=== PATIENT | male | born 1975 | race Caucasian/White ===

== ENCOUNTER 2020-04-26 08:03 | Emergency (ER) | payer OTHER, SELFPAY ==
[2020-04-26 08:24] VITALS: BP 126/91; PULSE 64; RESP 18; TEMP 36.4; O2SAT 99
--- NOTE | 2020-04-26 08:37 | ED.GENADULT ---
HPI - General Adult General Chief complaint: Ear Stated complaint: Ear Infection Time Seen by Provider: 04/26/20 08:27 Source: patient Mode of arrival: ambulatory Limitations: no limitations History of Present Illness HPI narrative: 45 y/o male. Pertinent PMH includes: None reported. Presents to [facility] today with acute complaints of LT side otalgia, 'yellow' discharge, as well as 'aching' type pressure for past 72 hours. Client denies auditory changes or loss. No fever, chills. No WELSH, cough, chest congestion, sore throat, dyspnea. No known ill contacts. No relief with home OTC remedies. He is without additional acute complaints upon exam. Related Data Home Medications Medication Instructions Recorded Confirmed No Home Medications 04/26/20 04/26/20 Allergies Allergy/AdvReac Type Severity Reaction Status Date / Time No Known Allergies Allergy Verified 04/26/20 08:29 Review of Systems Review of Systems: Narrative: CONSTITUTIONAL: Denies fever, chills, sweats. EYES: Denies visual changes, redness, discharge. ENT: Denies rhinorrhea, congestion, sore throat. Positive otalgia. CARDIOVASCULAR: Denies chest pain, palpitations, edema. RESPIRATORY: Denies dyspnea, wheezing, cough GASTROINTESTINAL: Denies abdominal pain, nausea, vomiting, diarrhea. GENITOURINARY: Denies dysuria, hematuria, abnormal discharge SKIN: Denies rash or itching. MUSCULOSKELETAL: Denies acute back pain, joint pain, or myalgia. NEUROLOGIC: Denies numbness, or focal weakness. PSYCHIATRIC: Denies anxiety or depression. All systems reviewed & are unremarkable except as noted in HPI and below (HPI. ) PMFSH Comments At time of signature, I agree with nursing past medical, surgical, social and family history. There is no relevant family history pertinent to the presenting complaint. Exam Narrative: Exam Narrative: GENERAL: This is a well-nourished, well-developed patient, in no apparent distress. HEAD: normocephalic, atraumatic. EYES: PERRL. Sclera clear/white. Vision is grossly intact. EARS: External ears normal. LT auditory canal with yellow/serosanguineous discharge. No canal obstruction or gross swelling. TM appears erythematous and bulging. No TM perforation. Positive tragus manipulation LT. RT ear normal, unaffected. Hearing grossly intact. NOSE: External nose normal. Positive rhinorrhea. THROAT: Mucous membranes moist, posterior pharynx clear. NECK: Neck supple, non-tender without lymphadenopathy, masses or thyromegaly. CARDIOVASCULAR: Regular rate and rhythm without murmurs, gallops, or rubs. RESPIRATORY: Clear to auscultation. Breath sounds equal bilaterally. No wheezes, rales, or rhonchi. GASTROINTESTINAL: Abdomen soft, non-tender, nondistended. Bowel sounds are active. No hepato-splenomegaly, or palpable masses. No guarding. SKIN: warm, intact with no suspicious lesions or rash, good texture and turgor. NEURO: awake, alert, and oriented to person, place and time. There were no obvious focal neurologic abnormalities. Steady gait Course Course Emergency Course: -45 y/o male. -No pertinent PMH. -Acute complaints of otalgia, without auditory loss or deficits. -Positive tragus manipulation LT and physical exam findings suggestive of LT otitis Media. -Will treat accordingly with antimicrobial coverage. Pt voices personal preference for oral Vs gtts. Vital Signs Vital signs: Vital Signs Temperature 36.4 C 04/26/20 08:24 Pulse Rate 64 04/26/20 08:24 Respiratory Rate 18 04/26/20 08:24 Blood Pressure 126/91 H 04/26/20 08:24 Pulse Oximetry 99 04/26/20 08:24 Temperature 36.4 C 04/26/20 08:24 Pulse Rate 64 04/26/20 08:24 Respiratory Rate 18 04/26/20 08:24 Blood Pressure 126/91 H 04/26/20 08:24 Pulse Oximetry 99 04/26/20 08:24 Medical Decision Making [facility] Narrative Medical decision making narrative: -POC, Medication instructions, and out-patient follow needs reviewed. -He ap
== END 2020-04-26 08:40 | disposition home or self-care (01) ==
PROVIDERS: Emergency Provider Nurse Practitioner Adult Health
DX: H65.02 Acute serous otitis media, left ear (principal)
CPT/HCPCS: 99213; G0463